=== PATIENT | male | born 1935 | race Caucasian/White ===

== ENCOUNTER 2022-01-21 12:33 | Emergency (ER) | payer OTHER ==
[~2022-01-21] VITALS: Ht 182.9 cm; Wt 81.8 kg
[2022-01-21] MEDS ORDERED: LIDOCAINE 1% MDV 20ML VIAL SC ONE (13:00)
[2022-01-21 13:59] VITALS: BP 163/75
== END 2022-01-21 14:00 | disposition home or self-care (01) ==
LOC: EDBD 12:33 → M ED 12:33
DX: S09.90XA Unspecified injury of head, initial encounter (principal); S01.81XA Laceration without foreign body of other part of head, initial encounter; W01.10XA Fall on same level from slipping, tripping and stumbling with subsequent striking against unspecified object, initial encounter; Y92.099 Unspecified place in other non-institutional residence as the place of occurrence of the external cause; Z95.0 Presence of cardiac pacemaker; Z79.01 Long term (current) use of anticoagulants; Z88.1 Allergy status to other antibiotic agents